=== PATIENT | male | born 1995 | race Hispanic/Latino ===

== ENCOUNTER 2019-06-11 18:42 | Emergency (ER) | payer SELFPAY ==
--- NOTE | 2019-06-11 18:46 | ED.EYEPROB ---
HPI - Eye Problem General Chief complaint: Eye Problems Stated complaint: Eye irritation Time Seen by Provider: 06/11/19 18:50 Source: patient and RN notes reviewed Mode of arrival: ambulatory Limitations: no limitations History of Present Illness HPI Narrative: 24 year old male presents with concern for painful left eye with possible foreign body. Reports he got dust, dirt, or fiberglass in his eye on Wednesday evening. He reports he used OTC eye drops with no relief. He denies vision change, purulent drainage. chief complaint: eye pain and eye redness Related Data Allergies Allergy/AdvReac Type Severity Reaction Status Date / Time No Known Allergies Allergy Verified 08/07/13 11:13 Review of Systems Review of Systems: Narrative: CONSTITUTIONAL: Denies malaise, chills, sweats, or fever. EYES: Denies visual changes or discharge. Reports left eye redness, pain, watering. ENT: Denies rhinorrhea, congestion, sinus pain, otalgia or sore throat. CARDIOVASCULAR: Denies chest pain, palpitations RESPIRATORY: Denies dyspnea. SKIN: Denies rash or itching. NEUROLOGIC: Denies headache. All systems reviewed & are unremarkable except as noted in HPI and below PMFSH Comments At time of signature, agree with nursing past medical, surgical, social and family history. There is no relevant family history pertinent to the presenting complaint Exam Narrative: Exam Narrative: GENERAL: Well-appearing, well-nourished, and in no acute distress. HEAD: Normocephalic, atraumatic. EYES: Rigth PERRLA, conjunctivae clear. Left conjuctivae clear, sclera injected, EOMI; small FB noted on hager lamp exam. No nystagmus. ENT: Mucous membranes moist. NECK: Supple. CHEST: No respiratory distress. Speaks in full sentences. HEART: Regular rate and rhythm. No murmur heard. Normal peripheral pulses. SKIN: Warm, dry, no rash. NEURO: Alert and oriented x3. PSYCH: Normal mood and affect Course Course Emergency Course: Patient is aware of diagnosis, understands and agrees to treatment plan. Anticipatory guidance given. Patient agrees to follow-up as directed and is aware of reasons to seek care at the emergency department. Portions of this record may have been created with voice recognition software Vital Signs Vital signs: Vital Signs Temperature 99.2 F 06/11/19 18:53 Pulse Rate 77 06/11/19 18:53 Respiratory Rate 16 06/11/19 18:53 Blood Pressure 119/50 L 06/11/19 18:53 Pulse Oximetry 98 06/11/19 18:53 Temperature 99.2 F 06/11/19 18:53 Pulse Rate 77 06/11/19 18:53 Respiratory Rate 16 06/11/19 18:53 Blood Pressure 119/50 L 06/11/19 18:53 Pulse Oximetry 98 06/11/19 18:53 Reviewed. Procedures FB Removal Eye Foreign Body #1: Foreign Body Removal Date: 06/11/19 Foreign Body Removal Time: 19:00 Time Out performed: Yes Location: eye (L) Topical anesthetic used: tetracaine Foreign body: other (possible dirt or fiberglass) Evidence of corneal penetration: Yes (pinpoint stain upon hager lamp exam that is not removable via swab or flush) Technique: irrigation and cotton tip swab Procedure performed under: other (visualization with magnification and florescein stain) Foreign Body Removal Narrative: Tetracaine 1 gtt instilled in left eye, fluorescein stain applied. Corneal abrasion noted upon hager lamp exam at approximately 7 o'clock in relation to the pupil. Eye washed with NS 100 ml. No visibleforeign bodies remain, no Raciel sign noted. MDM - Eye Problem MDM Narrative Medical decision making narrative: Consideration of the following conditions may be warranted for the presenting problem, they are not final diagnoses: Bacterial conjunctivitis, allergic conjunctivitis, viral conjunctivitis, foreign body, blepharitis, chalazion, hordeolum, corneal abrasion. Exam findings show no acute concerns or changes; patient is non-toxic appearing and is in no distress. Mónica
[2019-06-11 18:53] VITALS: BP 119/50; PULSE 77; RESP 16; TEMP 37.3; O2SAT 98
== END 2019-06-11 19:12 | disposition home or self-care (01) ==
PROVIDERS: Emergency Provider Nurse Practitioner
DX: T15.02XA Foreign body in cornea, left eye, initial encounter (principal)
CPT/HCPCS: 99203; A9270; G0463

== ENCOUNTER 2021-03-14 10:25 | Emergency (ER) | payer SELFPAY ==
--- NOTE | 2021-03-14 10:44 | PC.NURSE ---
WHILE VITAL SIGNS WERE BEING TAKEN. PT STATES HE CAME HER TO GET LAB WORK. EXPLAINED WE ARE NOT EQUIPPED FOR LAB DRAWS/ANALYSIS. HE STATES HE HAS UPPER ABD PAIN FOR TWO DAYS AND LOW GRADE TEMP. THIS RNEXPLAINED THAT WE ARE MORE THAN HAPPY TO SEE HIM HERE HE STATED I WOULD PREFER TO GO TO THE ED FOR FURTHER EVALUATION. LWBS WITH FRIEND TO DRIVE.
== END 2021-03-14 10:48 | disposition left against medical advice (07) ==
PROVIDERS: Emergency Provider Internal Medicine Hematology & Oncology
DX: Z53.21 Procedure and treatment not carried out due to patient leaving prior to being seen by health care provider (principal)
CPT/HCPCS: 99199

== ENCOUNTER 2021-03-14 10:56 | Emergency (ER) | payer SELFPAY ==
--- NOTE | ~2021-03-14 | US_ITS ---
EXAMINATION: US abdomen limited EXAM DATE: 03/14/2021 12:07 INDICATION: RUQ/epigastric pain. TECHNIQUE: Multiple grayscale and Doppler images of the abdomen right upper quadrant were obtained (b y a technologist who performed the scan) and subsequently reviewed. There is no prior study for livia gordillo. FINDINGS: The pancreatic head and body are normal in appearance. The pancreatic tail is not visualized. The l iver has normal echogenicity and contour. There are no focal liver lesions identified. There is no evidence of intrahepatic biliary duct dilation. Portal venous flow was seen in the hepatopedal, nor mal direction and has normal Doppler waveform. No right-sided hydronephrosis. Common bile duct measures 3-4 mm, which is normal. The gallbladder wall is normal in thickness, with expected amount of distention. No sonographic evidence of pericholecystic fluid. There is no cholel ithiases. Technologist noted right upper quadrant tenderness. IMPRESSION: Technologist noted right upper quadrant tenderness, however gallbladder sonographically n ormal. Reviewed, dictated and finalized at location A. IMPRESSION: Technologist noted right upper quadrant tenderness, however gallbla dder sonographically normal.
[2021-03-14 11:07] VITALS: BP 128/85; PULSE 71; RESP 18; TEMP 36.6; O2SAT 98
[2021-03-14 11:26] LABS: Basophils Percent Auto 0.4 % (0.2-1.2); Eosinophils Absolute Auto 0.3 K/mm3 (0-0.3); Eosinophils Percent Auto 3.5 % (0-4.4); Hematocrit 44.3 % (42.0-52.0); Hemoglobin 15.2 g/dL (14.0-18.0); Immature Granulocyte Absolute 0.03 K/mm3 (0.00-0.031); Immature Granulocyte Percent A 0.4 % (0-0.5); Lymphocytes Absolute Auto 1.48 K/mm3 (0.9-3.2); Lymphocytes Percent Auto 20.8 % (18.3-44.2); Mean Corpuscular HGB Conc 34.3 g/dl (32-36); Mean Corpuscular Hemoglobin 30.1 pg (26-34); Mean Corpuscular Volume 87.7 fl (80-100); Monocytes Absolute Auto 0.6 K/mm3 (0.1-0.6); Monocytes Percent Auto 7.7 % (2.6-8.5); Neutrophils Absolute Auto 4.8 K/mm3 (1.3-6.7); Neutrophils Percent Auto 67.2 % (45.5-73.1); Platelet Count Result 215 k/mm3 (150-375); Red Blood Count 5.05 M/mm3 (4.6-6.20); White Blood Count 7.1 K/mm3 (4.5-10.0)
--- NOTE | 2021-03-14 11:26 | ECG_ITS ---
Measurements Intervals [place] Rate: 64 P: 28 TN: 135 QRS: 48 QRSD: 110 T: 30 QT: 382 QTc: 396 Interpretive Statements SINUS RHYTHM WITH SINUS ARRHYTHMIA BASELINE ARTIFACT- I, III, AVR, AVL, AVF, V4-V6 NORMAL ECG Electronically Signed On 03-14-2021 11:44:43 CDT by Kartik Cotter D.O.
--- NOTE | 2021-03-14 11:27 | ED.ABDPAIN ---
HPI - Abdominal Pain General Chief Complaint: Abdominal Pain Stated Complaint: abdominal pain Time Seen by Provider: 03/14/21 11:13 Source: patient Mode of arrival: ambulatory Limitations: no limitations History of Present Illness HPI narrative: This is a 26-year-old male that presents to the emergency department for epigastric pain x2 days. Reports intermittent, brief episodes of sharp pain in the epigastrium and right upper quadrant. No known alleviating or exacerbating factors. Sometimes it does cause him to be nauseous. Denies fever, chest pain, shortness of breath, vomiting, or dysuria. Related Data Allergies Allergy/AdvReac Type Severity Reaction Status Date / Time No Known Allergies Allergy Verified 03/14/21 11:10 Review of Systems Review of Systems: CONSTITUTIONAL: Denies fever CARDIOVASCULAR: Denies chest pain, or edema. RESPIRATORY: Denies dyspnea. GASTROINTESTINAL: Reports abdominal pain, nausea. Denies vomiting, or diarrhea. GENITOURINARY: Denies dysuria All systems reviewed & are unremarkable except as noted in HPI and below PMFSH Past Medical History Medical History (Updated 03/14/21 @ 14:00 by Rena Fuller PA-C) No active medical problems Social History Social History (Updated 03/14/21 @ 11:28 by Rena Fuller PA-C) Smoking status: Current every day smoker Tobacco type: cigarettes and e-cigarettes/vaping Exam Narrative: GENERAL: Well-appearing, well-nourished, and in no acute distress. HEAD: Normocephalic, atraumatic. EYES: EOMI. CHEST: Clear to auscultation. No respiratory distress. No wheezes rales or rhonchi HEART: Regular rate and rhythm. No murmur heard. Normal peripheral pulses. ABDOMEN: Soft, nontender, nondistended, normal active bowel sounds. EXTREMITIES: Normal range of motion. No edema. SKIN: Warm, dry, no rash. NEURO: No focal deficits. Alert and oriented x3. PSYCH: Normal mood and affect Course Vital Signs Vital signs: Vital Signs Temperature 97.9 F 03/14/21 11:07 Pulse Rate 71 03/14/21 11:07 Respiratory Rate 18 03/14/21 11:07 Blood Pressure 128/85 03/14/21 11:07 Pulse Oximetry 98 03/14/21 11:07 Temperature 97.6 F 03/14/21 13:00 Pulse Rate 57 L 03/14/21 13:00 Respiratory Rate 18 03/14/21 11:07 Blood Pressure 127/81 03/14/21 13:00 Pulse Oximetry 99 03/14/21 13:00 MDM - Abdominal Pain MDM Narrative Medical decision making narrative: Patient presents to the emergency department for epigastric abdominal pain present over the last couple of days. He is afebrile and nontoxic-appearing. Vitals are stable. Abdominal exam is benign. CBC is without leukocytosis. Metabolic panel and lipase without concerning findings. UA without evidence of infection. Quadrant ultrasound is without acute findings. Patient was updated on case findings. Instructed on care of GERD and to take Pepcid daily. He is to follow-up with primary care doctor. He was given warnings to return to the ER Lab Data Attestation: I reviewed the patient's lab results. Result diagrams: 03/14/21 11:19 03/14/21 11:19 Labs: Lab Results 03/14/21 03/14/21 03/14/21 Range/Units 11:19 11:19 12:06 WBC 7.1 (4.5-10.0) K/mm3 RBC 5.05 (4.6-6.20) M/mm3 Hgb 15.2 (14.0-18.0) g/dL Hct 44.3 (42.0-52.0) % MCV 87.7 (80-100) fl MCH 30.1 (26-34) pg MCHC 34.3 (32-36) g/dl RDW 13.0 (11.5-14.5) % Plt Count 215 (150-375) k/mm3 MPV 10.0 (7.4-10.4) fl Immature Gran % (Auto) 0.4 (0-0.5) % Neut % (Auto) 67.2 (45.5-73.1) % Lymph % (Auto) 20.8 (18.3-44.2) % [place] % (Auto) 7.7 (2.6-8.5) % Eos % (Auto) 3.5 (0-4.4) % Baso % (Auto) 0.4 (0.2-1.2) % Lymph # (Auto) 1.48 (0.9-3.2) K/mm3 [place] # (Auto) 0.6 (0.1-0.6) K/mm3 Eos # (Auto) 0.3 (0-0.3) K/mm3 Baso # (Auto) 0.0 (0.0-0.1) K/mm3 Abs Immat Gran (auto) 0.03 (0.00-0.031) K/mm3 Absolute Neuts (auto) 4.8 (
[2021-03-14 11:44] LABS: Alanine Aminotransferase 32 U/L (4-50); Alkaline Phosphatase 75 U/L (38-126); Anion Gap 8 mmol/L (8-16); Aspartate Amino Transferase 31 U/L (17-59); Bilirubin,Total 0.8 mg/dL (0.2-1.3); Blood Urea Nitrogen 13 mg/dL (9-20); Calcium 9.8 mg/dL (8.4-10.2); Carbon Dioxide 28 mmol/L (22-30); Chloride 105 mmol/L (98-107); Estimated CRCL calculation 141 ml/min; Estimated Glomerular Filt Rate > 60; Glucose 104 mg/dL (65-110); Lipase 22 U/L (23-300); Potassium 4.2 mmol/L (3.4-5.0); Sodium 141 mmol/L (137-145)
[2021-03-14] MEDS: PANTOPRAZOLE SODIUM IV 40 MG VIAL IV PUSH (12:09)
[2021-03-14 12:23] LABS: Add Urine Microscopic? NO; Appearance Urine Clear (Clear); Bilirubin Urine Negative (Negative); Blood Urine Negative (Negative); Color Urine Yellow (Yellow); Glucose Urine UA Negative (Negative); Ketones Urine Negative (Negative); Leukocyte Esterase Ur Negative LEU/UL (Negative); Nitrate Urine Negative (Negative); Protein Urine Negative (Negative); Urobilinogen Urine Negative mg/dL (<2.0)
[2021-03-14 13:00] VITALS: BP 127/81; PULSE 57; TEMP 36.4; O2SAT 99
[2021-03-14 14:14] VITALS: BP 114/66; PULSE 50; RESP 12; O2SAT 98
== END 2021-03-14 14:16 | disposition home or self-care (01) ==
PROVIDERS: Physician Assistant; Emergency Provider Emergency Medicine
DX: R10.13 Epigastric pain (principal); F17.210 Nicotine dependence, cigarettes, uncomplicated; F17.290 Nicotine dependence, other tobacco product, uncomplicated
CPT/HCPCS: 36415; 76705; 80053; 81003; 83690; 85025; 93005; 96374; 96375; 99284; C9113; J0131